=== PATIENT | female | born 1985 | race Caucasian/White ===

== ENCOUNTER → 2016-08-02 | Day surgery (SDC) | payer MEDICAID ==
--- NOTE | 2016-08-01 09:55 | MH ---
cc: GENE BRENNAN MD DATE OF ADMISSION: 08/02/2016 REASON FOR ADMISSION This patient is a 31-year-old white female, 2, para 2, who is being admitted to [facility] for a loop electrosurgical excision procedure. HISTORY OF PRESENT ILLNESS The patient is well-known to our practice. 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 We saw her in the office and discussed the different modes of therapy and elected to go with loop electrosurgical excision procedure. PAST MEDICAL HISTORY 1. Poorly controlled hypertension. When she was sitting in the office her blood pressure was 164/110, and therefore she was sent for referral to primary care. For her hypertension she had been taking labetalol 200 mg b.i.d. 2. Mild depressive disorder, is on citalopram 20 mg p.o. q.d. GYNECOLOGICAL HISTORY She is presently using a Mirena IUD for control. It was discussed with the patient the need to remove the IUD before the procedure. The patient fully understands that she will need another form of control. PAST SURGICAL HISTORY Oophorectomy. SOCIAL HISTORY She is a non-smoker, non-drinker. PHYSICAL EXAMINATION GENERAL: The patient is well-developed, well-nourished, in no acute distress. VITAL SIGNS: Blood pressure as mentioned above, 164/110, pulse 70, respirations 12. HEENT: Negative. CHEST: Clear to auscultation. CARDIOVASCULAR: Regular rate. ABDOMEN: Soft. Bowel sounds positive. PELVIC: Normal size uterus. There are no adnexal masses palpable. EXTREMITIES: No clubbing, cyanosis or edema. NEUROPSYCHIATRIC: Patient was oriented x3 and showed no gross neurocranial deficit. 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 PLAN The plan is for loop electrosurgical excision procedure using two-stage technique and removal of Mirena IUD. Gene Brennan MD JSG/BT /9:27 AM /9:54 AM
[~2016-08-02] VITALS: Ht 180.3 cm; Wt 135.7 kg
[~2016-08-02] MED LIST: *ENALAPRILAT 1.25 MG/ML VIAL PERIprocedural Use ONLY ONE; *LABETALOL HCL 100 MG/20 ML VIAL PERIprocedural Use ONLY ONE; CITA20TA4 PO; DO NOT ADM ANY ANTICOAGULANT DRUGS XX PRN; INSULIN HUMAN REGULAR 1,000 UNITS/10 ML VIAL SQ PRN; KETOROLAC TROMETHAMINE 60 MG/2 ML (IM) VIAL IM ONE; LABE200T2 PO; LACTATED RINGER'S 1000 ML IV SCH; METOPROLOL TARTRATE 25 MG TAB PO PRN; MIDAZOLAM HCL 2 MG/2 ML VIAL ONE; MIREIUD I-UTERINE; ONDANSETRON HCL 4 MG/2 ML VIAL IV PUSH ONE; ONDANSETRON HCL 4 MG/2 ML VIAL IV PUSH PRN; PROPOFOL 200 MG/20 ML AMP IV ONE; SODIUM CHLORID 0.9% 500 ML IV SCH; ceFAZolin 2 GM PREMIX 50 ML IV SCH
[2016-08-02 11:47] VITALS: BP 178/115; PULSE 74; RESP 18; TEMP 98.5; O2SAT 97
[2016-08-02 16:16] VITALS: BP 158/85; PULSE 94; RESP 18; TEMP 97.9; O2SAT 99
--- NOTE | 2016-08-04 11:16 | MP ---
cc: GENE BRENNAN MD DATE OF SURGERY 08/02/2016 PREOPERATIVE DIAGNOSIS Severe dysplasia POSTOPERATIVE DIAGNOSIS Severe dysplasia OPERATION LOOP electrical excision procedure SURGEON Gene Brennan MD ANESTHESIA General ESTIMATED BLOOD LOSS Minimal COMPLICATIONS None TRIAGE TECHNICIAN None FINDINGS Consistent with a normal pelvic examination. PROCEDURE The patient was prepped and draped in the dorsolithotomy position. A weighted speculum was placed in the posterior vaginal vault and the anterior cervix grasped with a single toothed tenaculum. The transformation zone was identified and then the transformation zone was excised using a medium sized wire loop and a small portion of the endocervical canal was removed using a small sized wire loop. The ball electrode was used for hemostasis and after good hemostasis was noted, the tenaculum and speculum was then removed and the patient returned to the Recovery Room in stable condition. Gene Brennan MD JSG/DJL /1:55 PM /11:12 AM
== END | disposition home or self-care (01) ==
LOC: HSDC 11:10
PROVIDERS: ATTEND Obstetrics & Gynecology
DX: D06.9 Carcinoma in situ of cervix, unspecified (principal); I10 Essential (primary) hypertension
CPT/HCPCS: 00940; 57522; 88300; 88307; J1885; J2250; J2405; J3010; J7120; 88305

== ENCOUNTER 2017-06-01 08:25 | Emergency (ER) | payer MEDICAID ==
[~2017-06-01] VITALS: Ht 180.3 cm; Wt 132.0 kg
[~2017-06-01 08:25] MED LIST changes: -*ENALAPRILAT 1.25 MG/ML VIAL PERIprocedural Use ONLY ONE; -*LABETALOL HCL 100 MG/20 ML VIAL PERIprocedural Use ONLY ONE; -CITA20TA4 PO; -DO NOT ADM ANY ANTICOAGULANT DRUGS XX PRN; -INSULIN HUMAN REGULAR 1,000 UNITS/10 ML VIAL SQ PRN; -KETOROLAC TROMETHAMINE 60 MG/2 ML (IM) VIAL IM ONE; -LABE200T2 PO; -LACTATED RINGER'S 1000 ML IV SCH; -METOPROLOL TARTRATE 25 MG TAB PO PRN; +METR1TAB76 PO; -MIDAZOLAM HCL 2 MG/2 ML VIAL ONE; -MIREIUD I-UTERINE; -ONDANSETRON HCL 4 MG/2 ML VIAL IV PUSH ONE; -ONDANSETRON HCL 4 MG/2 ML VIAL IV PUSH PRN; -PROPOFOL 200 MG/20 ML AMP IV ONE; -SODIUM CHLORID 0.9% 500 ML IV SCH; -ceFAZolin 2 GM PREMIX 50 ML IV SCH
[2017-06-01 08:30] VITALS: BP 188/126; PULSE 85; RESP 16; TEMP 98.6; O2SAT 97
[2017-06-01] MEDS ORDERED: MAGICADU2 SWISH-SPIT (09:07)
[2017-06-01] MEDS ORDERED: PENI500T PO (09:07)
--- NOTE | 2017-06-01 09:11 | PD ---
HPI Chief Complaint: Oral / Dental Pain or Problem Time Seen by Provider: 09:02 Travel History International Travel<30 days: No Contact w/Intl Traveler<30days: No Traveled to known affect area: No History of Present Illness HPI 32-year-old female here with dental pain. Symptoms started yesterday. The pain is throbbing, constant, worse when chewing, localized to the right maxillary molar region. Denies any fevers, chills. She tried using over-the- counter NSAIDs but symptoms persist. She has no other complaints at this time. PFSH Past Medical History Cancer: No Cardiovascular Problems: No Diabetes: No Diminished Hearing: No Endocrine: No Genitourinary: No Hepatitis: No Hiatal Hernia: No Immune Disorder: No Musculoskeletal: No Neurologic: No Psychiatric: Yes (DEPRESSION) Reproductive: No Respiratory: No Thyroid Disease: No ?: Not LMP: LAST MONTH Past Surgical History Abdominal Surgery: No AICD: No Body Medical Devices: MIRENA IUD Cardiac Surgery: No Ear Surgery: No Endocrine Surgery: No Eye Surgery: No Genitourinary Surgery: No Gynecologic Surgery: Yes (R OOPHERECTOMY) Joint Replacement: No Oral Surgery: No Pacemaker: No Thoracic Surgery: No Social History Alcohol Use: No Tobacco Use: No Substance Use: No Allergies-Medications (Allergen,Severity, Reaction): Coded Allergies: No Known Allergies (Verified Adverse Reaction, Unknown, 06/01/17) Reported Meds & Prescriptions Reported Meds & Active Scripts Active Magic Mouthwash Adult Liq (Multi-Ingredient Mouthwash/Gargle) 120 Ml Susp 10 Ml SWISH-SPIT ACHS Each 5mL contains: Nystatin 200,000units, Diphenhydramine 4.25mg, Viscous Lidocaine 10mg, Mancuso syrup 0.8 mL Penicillin V Potassium 500 Mg Tab 500 Mg PO Q8H 10 Days Review of Systems Except as stated in HPI: all other systems reviewed are Neg Physical Exam Narrative GENERAL: Well-nourished female in no acute distress SKIN: Warm and dry. HEAD: Atraumatic. Normocephalic. EYES: Pupils equal and round. No scleral icterus. No injection or drainage. ENT: No nasal bleeding or discharge. Mucous membranes pink and moist. Right maxillary second molar is decayed and tender to palpation. The surrounding gumline is edematous and erythematous. NECK: Trachea midline. No JVD. No lymphadenopathy or submandibular edema. CARDIOVASCULAR: Regular rate and rhythm. No murmur appreciated. RESPIRATORY: No accessory muscle use. Clear to auscultation. Breath sounds equal bilaterally. Data Data Last Documented VS Vital Signs Date Time Temp Pulse Resp B/P (MAP) Pulse Ox O2 Delivery O2 Flow Rate FiO2 06/01/17 08:30 98.6 85 16 188/126 (146) 97 Orders Orders Ed Discharge Order (06/01/17 09:08) MDM Medical Decision Making Medical Screen Exam Complete: Yes Emergency Medical Condition: Yes Medical Record Reviewed: Yes Differential Diagnosis Dental caries, pulpitis, pericoronitis, periodontal abscess Narrative Course 32-year-old female 2 days of dental pain. Examination reveals significant dental caries. The patient is being given prescriptions for penicillin and Magic mouthwash. We discussed her elevated blood pressure which is likely acutely elevated secondary to pain. She is instructed to monitor her blood pressure on a daily basis and keep a journal to follow-up with primary care physician about. Diagnosis Primary Impression: Dental caries Referrals: [facility] Dentist Additional Instructions: Medications prescribed. Follow up with a dentist for definitive therapy. As discussed, your blood pressure was quite elevated. It is important to monitor your blood pressure on a regular basis, keep a journal, and follow up with a primary care physician to discuss the results of your journal. Med/Other Pt SpecificInfo: Prescription(s) given Scripts Dpqfkuab-Lgxrxsuhfubijtp-Tdaekbysm Liq (Magic Mouthwash Adult Liq) 120 Ml Susp 10 ML SWISH-SPIT ACHS for Mouth sores, #120 ML 1 Refill Each 5mL contains: Nystatin 200,000units, Diphenhydramine 4.25mg, Viscous Lidocaine 10mg, Mancuso syrup 0.8 mL Prov: Shara Phelps MD 06/01/17 Penicillin V Potassium (Penicillin V Potassium) 500 Mg Tab 500 MG PO Q8H for Infection for 10 Days, #30 TAB 0 Refills Prov: Shara Phelps MD 06/01/17 Disposition: 01 DISCHARGE HOME Condition: Stable Surya Hummel Jun 01, 2017 09:11
[2017-06-01 09:24] VITALS: BP 200/99
== END 2017-06-01 09:26 | disposition home or self-care (01) ==
LOC: PHED 08:25
DX: K02.9 Dental caries, unspecified (principal); R03.0 Elevated blood-pressure reading, without diagnosis of hypertension
CPT/HCPCS: 99284